=== PATIENT | female | born 1955 | race Caucasian/White ===

== ENCOUNTER → 2017-11-29 | Outpatient (CLI) | payer BC ==
[~2017-11-29] MED LIST: AMIT-104 PO; ATOR10TA24 PO; CHOL500016 PO; CYPR4TAB32 PO; DIPH0.5D12 IM; FEXO180T87 PO; HYDR-2966 PO; LISI5TAB25 PO; LORA-629 PO; NAPR500T31 PO; OMEP40CA48 PO; RANI-366 PO; RANI300C8 PO; SERT-181 PO; SITA1TBM7 PO; VERA180C8 PO
[2017-11-29 12:06] LABS: PLATELET COUNT, AUTOMATED 267 K/uL (150-450)
== END ==
LOC: LAB 11:48
PROVIDERS: ATTEND Emergency Medicine
DX: Z13.21 Encounter for screening for nutritional disorder (principal); E11.9 Type 2 diabetes mellitus without complications; E66.9 Obesity, unspecified
CPT/HCPCS: 36415; 82040; 82247; 82306; 82310; 82374; 82435; 82465; 82565; 82607; 82947; 83036; 83718; 84075; 84132; 84155; 84295; 84443; 84450; 84460; 84478; 84520; 85025

== ENCOUNTER → 2018-03-30 | Outpatient (CLI) | payer BC ==
[~2018-03-30] MED LIST changes: -CYPR4TAB32 PO; +CYPR4TAB5 PO
== END ==
LOC: LAB 09:56
PROVIDERS: ATTEND Emergency Medicine
DX: E78.5 Hyperlipidemia, unspecified (principal); E83.52 Hypercalcemia
CPT/HCPCS: 36415; 82306; 82310; 82465; 83718; 83970; 84478

== ENCOUNTER → 2018-04-25 | Outpatient (CLI) | payer BC ==
[~2018-04-25] MED LIST changes: +FLU60VIA41 IM; +PNEI IM
--- NOTE | 2018-04-25 13:45 | RADIOLOGY IMAGING REPORT ---
[place] [facility] [place] Rosario Rodriguez : 1955 MR: [id number] V: [id number] EXAM DATE: ORDERING PHYSICIAN: JOSH JENKINS TECHNOLOGIST: Location: [facility] Patient: Rosario Rodriguez : 1955 Visit/Account:[id number] Date of Sevice: 04/25/2018 DEXA Scan Clinical history: Family history of osteoporosis, postmenopausal. Comparison: None available. LUMBAR SPINE: The bone mineral density (BMD) measured from L1-L4 correlates with a Z-score 4.2 and a T-score of 4.1 which is Normal as defined by the World Health Organization. The corresponding risk of fracture in the lumbar spine is Not increased compared with a young adult reference population. HIP: Bone mineral density (BMD) measured in the Left total hip region correlates with a Z-score by 0.4 and a T-score of -0.5 which is Normal as defined by the World Health Organization. The corresponding ri sk of fracture in the hip is 1-2 times increased compared with a young adult reference population. T score left femoral neck 0.1 Bone mineral density (BMD) measured in the Femoral Neck region measures 1.052 g/cm2. Impression: 1. Lumbar spine: Normal. 2. Left Hip: Normal. 3. Femoral Neck: Bone Mineral Density is 1.052 g/cm2 The next DEXA scan of this patient should include the following sites: L1-L4 and the left hip. FRAX? WHO Fracture Risk Assessment Tool link: <http://www.shef.ac.uk/FRAX/tool.jsp?locationValue=9> PLEASE NOTE: 1) The World Health Organization defines low BMD as follows: T-score Normal > -1 Osteopenia < -1 and > -2.5 Osteoporosis < -2.5 without fractures Established osteoporosis < -2.5 with fractures 2) In general, you may wish to consider: Diagnosis Treatment Follow-up DEXA Normal BMD Prevention 2-3 years Osteopenia Prevention/therapy 1-2 years Osteoporosis Therapy Yearly 3) Fracture risk estimated from the T-score is more accurate for vertebral fractures (often spontane ous) than for hip fractures. Report Dictated By: Rose Wiley MD at 04/25/2018 1:40 PM Report E-Signed By: Rose Wiley MD at 04/25/2018 1:41 PM WSN:[email or web address]
--- NOTE | 2018-04-27 14:53 | RADIOLOGY IMAGING REPORT ---
FACILITY: PATIENT NAME: ESTIVEN WILKINSON : [id number] MR: [id number] V: [id number] EXAM DATE: [id number] ORDERING PHYSICIAN: JOSH JENKINS TECHNOLOGIST: Aide Rosario PROCEDURE:BILATERAL DIGITAL SCREENING MAMMOGRAM WITH CAD ASSISTED INTERPRETATION & 3D TOMOSYNTHESIS COMPARISON:None, this is the patient's baseline mammogram. The patient also gives a history of bilateral breast reconstruction with scaring. INDICATIONS:Screening FINDINGS: There is predominant fatty replacement throughout the breasts. There is indentation of the skin just lateral to midline in the anterior 1/3 of the Right breast which likely represents the reported scaring. There is also an area of architectural distortion along the inferior aspect of the Right breast on the Right MLO view again likely related to the reported scaring. There is an area of architectural distortion along the inferior aspect Left breast on the Left MLO view also likely related to the reported scaring. Sense there are no mammograms prior to this study available for comparison a 6 month follow-up bilateral mammogram is recommended to document stability of the findings. DIAGNOSTIC CATEGORY 3--PROBABLY BENIGN FINDING. RECOMMENDATIONS: SIX MONTH FOLLOW-UP DIAGNOSTIC MAMMOGRAM: BILATERAL BREASTS. IMPRESSION: BIRADS 3: Probably benign finding. A 6 month follow-up bilateral mammogram is recommended as described above. Dictated by: Rose Wiley M.D. on 04/27/2018 at 11:16 Transcribed by: VANESA on 04/27/2018 at 11:29 Approved by: Rose Wiley M.D. on 04/27/2018 at 14:52 [facility]
== END ==
LOC: MAMO 00:35
PROVIDERS: ATTEND Emergency Medicine
DX: Z12.31 Encounter for screening mammogram for malignant neoplasm of breast (principal); R92.8 Other abnormal and inconclusive findings on diagnostic imaging of breast; N95.1 Menopausal and female climacteric states; E50.9 Vitamin A deficiency, unspecified; Z87.81 Personal history of (healed) traumatic fracture
CPT/HCPCS: 77063; 77067; 77080

== ENCOUNTER → 2018-10-03 | Outpatient (CLI) | payer BC ==
[~2018-10-03] MED LIST changes: +LISI30TA49 PO
[2018-10-03 08:54] LABS: PLATELET COUNT, AUTOMATED 252 K/uL (150-450)
[2018-10-03 09:09] LABS: LDL CHOLESTEROL 38 mg/dl
== END ==
LOC: LAB 08:39
PROVIDERS: ATTEND Emergency Medicine
DX: E11.9 Type 2 diabetes mellitus without complications (principal); E78.5 Hyperlipidemia, unspecified; I10 Essential (primary) hypertension
CPT/HCPCS: 36415; 82040; 82247; 82310; 82374; 82435; 82465; 82565; 82607; 82947; 83036; 83718; 84075; 84132; 84155; 84295; 84450; 84460; 84478; 84520; 85025

== ENCOUNTER → 2018-11-02 | Outpatient (CLI) | payer BC ==
[~2018-11-02] MED LIST changes: -DIPH0.5D12 IM; +DIPH0.5S2 IM
== END ==
LOC: LAB 09:51
PROVIDERS: ATTEND Emergency Medicine
DX: I10 Essential (primary) hypertension (principal)
CPT/HCPCS: 36415; 82310; 82374; 82435; 82565; 82947; 84132; 84295; 84520